=== PATIENT | female | born 1935 | race Caucasian/White ===

== ENCOUNTER 2018-05-11 18:44 | Emergency (ER) | payer MEDICARE ==
--- NOTE | 2018-05-11 20:12 | ED PDOC ---
Upper Extremity Pain/Injury Time Seen by Provider: 05/11/18 19:22 Chief Complaint (Nursing): Upper Extremity Problem/Injury Chief Complaint (Provider): Upper Extremity Injury History Per: Patient History/Exam Limitations: no limitations Onset/Duration Of Symptoms: Hrs Additional Complaint(s): 82 y/o female with a history of high cholesterol and blood pressure presents to the ED for left hand wrist pain. Patient reports this morning she was putting on her shoes when she lost her balance. She states she used her left hand to break her fall. Patient reports pain to the wrist since the injury. She is left hand dominant. Denies taking any medication prior to arrival. She denies any head injury, blood thinners, or other extremity pain. PMD: out of town Past Medical History Reviewed: Historical Data, Nursing Documentation, Vital Signs Vital Signs: Last Vital Signs Temp 97.6 F 05/11/18 19:15 Pulse 67 05/11/18 19:15 Resp 20 05/11/18 19:15 BP 146/76 05/11/18 19:15 Pulse Ox 99 05/11/18 19:15 - Medical History PMH: HTN, Hyperlipidemia - Surgical History Surgical History: Cholecystectomy Other surgeries: bladder prolapse - Family History Family History: States: No Known Family Hx - Social History Current smoker - smoking cessation education provided: No Ex-Smoker (has not smoked in the last 12 months): No Alcohol: None Drugs: Denies - Home Medications Home Medications: Ambulatory Orders Medication Instructions Recorded Acetaminophen [Acetaminophen 8 650 mg PO Q8 PRN #24 tablet.er 05/11/18 Hour] traMADol [Ultram] 50 mg PO Q6 PRN #12 tab 05/11/18 - Allergies Allergies/Adverse Reactions: Allergies Allergy/AdvReac Type Severity Reaction Status Date / Time Sulfa (Sulfonamide Allergy URTICARIA Verified 05/11/18 19:14 Antibiotics) Review of Systems ROS Statement: Except As Marked, All Systems Reviewed And Found Negative Constitutional: Negative for: Other (blood thinngers or other extremity pain) Musculoskeletal: Positive for: Other (left wrist pain) Neurological: Negative for: Other (head injury) Physical Exam - Reviewed Nursing Documentation Reviewed: Yes Vital Signs Reviewed: Yes - Physical Exam Comments: GENERAL APPEARANCE: Patient is awake, alert, oriented x 3, in no acute distress. Resting comfortably. SKIN: Warm, dry; (-) cyanosis. 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 (-) erythema (-) deformity. (-) distal neurovascular deficit. Elbow, hand and digits: (-) tenderness. CHEST AND RESPIRATORY: (-) rales, (-) rhonchi, (-) wheezes; breath sounds equal bilaterally. HEART AND CARDIOVASCULAR: (-) irregularity; (-) murmur, (-) gallop. NEURO AND PSYCH: Mental status as above. Sensation and nonvascular intact. - ECG O2 Sat by Pulse Oximetry: 99 (RA) Pulse Ox Interpretation: Normal Medical Decision Making Medical Decision Making: Time: 19:15 Impression: Acute wrist pain s/p fall Plan: * Left wrist x-ray * Tramadol 50mg PO X-Ray: Transverse distal radius fracture Patient notified that official radiology read will be available within 24 hours and she will be notified of any discrepancies. 20:00 Sugartong splint and sling placed by [employer]. Placement and application verified by Kaley STONE. NV intact after splint placement. 20:25 After splint placement, patient reports increased pain. Additional Tramadol 50mg and Tylenol 650mg PO was ordered. 20:50 On re-evaluation, patient reports improvement of symptoms. On exam, patient remains AAOx3, in no acute distress. On exam, neck is supple, lungs CTA, cardiac RRR, abdomen is soft and non-tender, neuro exam shows no focal findings. Diagnostic results d/w the patient in great detail. Dx of acute wrist pain, distal radius fracture s/p fall d/w the patient. Based on history, exam and diagnostic results plan will be for discharge and outpatient orthopedic follow up. Advised to follow up with primary care physician/ortho in 1-2 days without fail. Advised to take medication as prescribed. Return to the emergency room at any time for any new or worsening symptoms. Patient states she fully agrees with and understands discharge instructions. States that she agrees with the plan and disposition. Verbalized and repeated discharge instructions and plan. I have given the patient opportunity to ask any additional questions. Scribe Attestation: Documented by Ryan Barba acting as a scribe Rayna Roche PA-C. MD Scribe Attestation: All medical record entries made by the Scribe were at my direction and personally dictated by me. I have reviewed the chart and agree that the record accurately reflects my personal performance of the history, physical exam, medical decision making, and the department course for this patient. I have also personally directed, reviewed, and agree with the discharge instructions and disposition. Disposition - Clinical Impression Clinical Impression: Distal radius fracture, left, Wrist pain, acute - Patient ED Disposition Is Patient to be Admitted: No Counseled Patient/Family Regarding: Studies Performed, Diagnosis, Need For Followup, Rx Given - Disposition Referrals: Julien Vazquez III, MD [Staff Provider] - Disposition: Routine/Home Disposition Time: 20:48 Condition: IMPROVED Additional Instructions: FOLLOW UP WITH PMD/ORTHO IN 1-2 DAYS WITHOUT FAIL RETURN TO ED WITH ANY NEW OR WORSENING SYMPTOMS. Prescriptions: Acetaminophen [Acetaminophen 8 Hour] 650 mg PO Q8 PRN #24 tablet.er PRN Reason: Pain, Moderate (4-7) traMADol [Ultram] 50 mg PO Q6 PRN #12 tab PRN Reason: Pain, Severe (8-10) Instructions: Wrist Fracture (DC), Radius Fracture, Common Wrist Injuries (The Basics) Forms: [employer] (Icelandic) Print Language: INDONESIAN - POA Present On Arrival: Falls Or Trauma
[2018-05-11 21:01] VITALS: BP 138/78; PULSE 71; RESP 15; TEMP 98.5
[2018-05-11 21:05] VITALS: O2SAT 99
--- NOTE | 2018-05-12 07:37 | RAD ---
PROCEDURE: Left Wrist Radiographs. HISTORY: trauma COMPARISON: None. FINDINGS: BONES: There is a comminuted impacted fracture of the distal radius with dorsal angulation. Findings compatible with Colles fracture. Articular involvement not excluded. The distal ulna appears intact. degenerative changes are advanced throughout the proximal carpal row and are mild at the carpal carpal articulations. JOINTS: No dislocation or subluxation. SOFT TISSUES: Prominent soft tissue edema surrounds the fracture site. OTHER FINDINGS: None. IMPRESSION: Normal left wrist radiographs.
== END 2018-05-11 21:03 | disposition home or self-care (01) ==
LOC: H.ER 18:44
DX: S52.502A Unspecified fracture of the lower end of left radius, initial encounter for closed fracture (principal); Z87.891 Personal history of nicotine dependence; I10 Essential (primary) hypertension; E78.5 Hyperlipidemia, unspecified